=== PATIENT | female | born 1960 | race Caucasian/White ===

== ENCOUNTER 2024-12-01 11:11 | Outpatient (CLI) | payer MEDICARE, BC ==
--- NOTE | 2024-12-01 13:11 | RADIOLOGY REPORT ---
CLINICAL INDICATION: THUMB ARTHRITIS TECHNIQUE: 1 radiographic views of the left hand and 2 views of the left 1st digit were obtained. Comparison: DI FINGER(S) on DOS: 12/01/24 FINDINGS/IMPRESSION: There is no evidence of acute fracture or dislocation. Moderate osteoarthrosis of the 1st carpometacarpal joint.
--- NOTE | 2024-12-01 13:12 | RADIOLOGY REPORT ---
CLINICAL INDICATION: THUMB ARTHRITIS TECHNIQUE: 1 radiographic views of the right hand and 2 views of the right 1st digit were obtained. Comparison: DI FINGER(S) on DOS: 12/01/24 FINDINGS/IMPRESSION: There is no evidence of acute fracture or dislocation. Moderate osteoarthrosis of the 1st carpometacarpal joint.
--- NOTE | 2024-12-01 13:32 | RADIOLOGY REPORT ---
CLINICAL HISTORY: SPRAIN OF MEDIAL COLLATERAL LIGAMENT OF LEFT KNEE COMPARISON: None TECHNIQUE: Multisequence multiplanar MRI images of the left knee were obtained without contrast. FINDINGS: Cruciate ligaments: ACL and PCL are intact. Extensor mechanism: Quadriceps mechanism and patellar tendon are intact. Collateral ligaments: Mild grade 1 sprain of the MCL without evidence of tear. Lateral collateral ligament is intact. Menisci: No significant degeneration. No evidence of meniscal tear. Cartilage: Full-thickness chondral defect at the median ridge of the patella involving the mid inferior pole with mild subchondral cystic change. Chondral thinning in the medial compartment with superimposed fraying. Bones: No evidence of acute fracture. Minimal marrow edema at the lateral aspect of the tibial eminence. Minimal marrow edema in the posterior superior aspect of the medial femoral condyle near the attachment site of the medial head gastrocnemius tendon. Joint fluid: No significant joint effusion. Other: Trace popliteal cyst. IMPRESSION: 1. Mild grade 1 sprain of the MCL. 2. 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 3. Mild marrow edema at the posterior superior aspect of the medial femoral condyle near the attachment site of the medial head gastrocnemius tendon, may be reactive to adjacent tendinopathy. Correlate with clinical findings. 4. Nonspecific mild marrow edema at the lateral aspect of the tibial eminence, may be reactive marrow changes or stress related changes. 5. Trace popliteal cyst.
== END 2024-12-01 23:59 | disposition home or self-care (01) ==
LOC: MRI02 11:11
PROVIDERS: ATTEND Family Medicine
DX: S83.412A Sprain of medial collateral ligament of left knee, initial encounter (principal); M18.0 Bilateral primary osteoarthritis of first carpometacarpal joints; M19.041 Primary osteoarthritis, right hand; M19.042 Primary osteoarthritis, left hand; M25.862 Other specified joint disorders, left knee; M22.42 Chondromalacia patellae, left knee; R60.0 Localized edema; X58.XXXA Exposure to other specified factors, initial encounter; Y93.89 Activity, other specified; Y92.89 Other specified places as the place of occurrence of the external cause; Y99.8 Other external cause status
CPT/HCPCS: 73140; 73721